=== PATIENT | male | born 1965 | race Caucasian/White ===

== ENCOUNTER 2017-05-04 16:18 | Emergency (ER) | payer OTHER ==
[~2017-05-04] VITALS: Ht 185.4 cm; Wt 103.1 kg
[2017-05-04] MEDS ORDERED: PRAVACHOL20 MG PO (16:33)
[2017-05-04] MEDS ORDERED: FLEXERIL10 MG PO (16:33)
[2017-05-04] MEDS ORDERED: RENVELA800 MG PO (16:34)
[2017-05-04] MEDS ORDERED: CORDARONE200 MG PO (16:34)
[2017-05-04] MEDS ORDERED: FLOMAX0.4 MG PO (16:34)
[2017-05-04] MEDS ORDERED: PAXIL20 MG PO (16:34)
[2017-05-04] MEDS ORDERED: ZOFRAN4 MG PO (16:35)
[2017-05-04] MEDS ORDERED: MIRALAX17 GM PO (16:35)
[2017-05-04] MEDS ORDERED: NEURONTIN300 MG PO (16:36)
[2017-05-04] MEDS ORDERED: NEURONTIN600 MG PO (16:36)
[2017-05-04] MEDS ORDERED: PROAMATINE10 MG PO (16:36)
[2017-05-04] MEDS ORDERED: ENULOSE10 GM/15 M PO (16:36)
[2017-05-04] MEDS ORDERED: ULTRAM50 MG PO (16:37)
[2017-05-04] MEDS ORDERED: DILAUDID2 MG PO (16:37)
[2017-05-04] MEDS ORDERED: OXYCONTIN60 MG PO (16:37)
[2017-05-04] MEDS ORDERED: IRON325 MG PO (16:38)
[2017-05-04] MEDS ORDERED: ACEPHEN325 MG PO (16:38)
[2017-05-04] MEDS ORDERED: VITAMIN D2000 UNIT PO (16:38)
[2017-05-04] MEDS ORDERED: DULCOLAX10 MG PR (16:38)
[2017-05-04] MEDS ORDERED: SENNA-DOCUSATE1 EAC1 PO (16:39)
[2017-05-04] MEDS ORDERED: MILK OF MAGN PO (16:39)
[2017-05-04 17:58] LABS: HEMATOCRIT 45.1 % (38.0-50.0); MCH 28.2 PG (29.0-34.0); MCHC 33.3 G/DL (30.0-36.0); MCV 84.8 FL (86-99); MEAN PLAT.VOLUME 9.6 uM^3 (9.0-12.4); PLATELET COUNT 215 K/uL (156-360); RBC DIS.WIDTH-CV 14.2 % (11.8-14.6); RBC DIS.WIDTH-SD 43.7 % (39-53); RED BLOOD COUNT 5.32 M/uL (4.00-5.50); WHITE BLOOD COUNT 6.9 K/uL (4.1-10.2)
[2017-05-04 18:08] LABS: CHLORIDE 97 mEq/L (99-109); POTASSIUM 3.9 mEq/L (3.7-5.4); SODIUM 136 mEq/L (136-147)
[2017-05-04 18:10] LABS: GLUCOSE 111 mg/dL (70-99)
[2017-05-04 18:11] LABS: ANION GAP 12 MEQ/L (2-14)
[2017-05-04 18:12] LABS: TOTAL BILIRUBIN 0.4 mg/dL (0.0-1.0)
[2017-05-04 18:13] LABS: ALKALINE PHOSPHATASE 103 IU/L (3-129)
[2017-05-04 18:14] LABS: GFR ESTIMATE (CALCULATED) 42 mL/min/
[2017-05-04 18:15] LABS: UREA NITROGEN (BUN) 25 mg/dL (9-23)
[2017-05-04 21:29] VITALS: BP 143/94
== END 2017-05-04 21:50 | disposition home or self-care (01) ==
LOC: EME 16:18
PROVIDERS: Emergency Medicine
DX: M25.551 Pain in right hip (principal); G89.29 Other chronic pain; N28.9 Disorder of kidney and ureter, unspecified
CPT/HCPCS: 80053; 85027; 99281; 99285

== ENCOUNTER 2017-06-12 12:55 | Inpatient (IN) | payer OTHER ==
[~2017-06-12] VITALS: Ht 188 cm; Wt 99.4 kg
[~2017-06-12 12:55] MED LIST: ACEPHEN325 MG PO; CORDARONE200 MG PO; DILAUDID2 MG PO; DULCOLAX10 MG PR; ENULOSE10 GM/15 M PO; FLEXERIL10 MG PO; FLOMAX0.4 MG PO; IRON325 MG PO; MILK OF MAGN PO; MIRALAX17 GM PO; NEURONTIN300 MG PO; NEURONTIN600 MG PO; OXYCONTIN30 MG PO; PAXIL20 MG PO; PRAVACHOL20 MG PO; PROAMATINE10 MG PO; RENVELA800 MG PO; SENNA-DOCUSATE1 EAC1 PO; ULTRAM50 MG PO; VITAMIN D2000 UNIT PO; ZOFRAN4 MG PO
[2017-06-12 13:44] LABS: HEMATOCRIT 51.8 % (38.0-50.0); MCH 28.1 PG (29.0-34.0); MCHC 32.6 G/DL (30.0-36.0); MCV 86.2 FL (86-99); MEAN PLAT.VOLUME 10.3 uM^3 (9.0-12.4); PLATELET COUNT 339 K/uL (156-360); RBC DIS.WIDTH-CV 14.8 % (11.8-14.6); RBC DIS.WIDTH-SD 45.7 % (39-53); RED BLOOD COUNT 6.01 M/uL (4.00-5.50); WHITE BLOOD COUNT 11.6 K/uL (4.1-10.2)
[2017-06-12 13:48] LABS: CHLORIDE 100 mEq/L (99-109); POTASSIUM 3.4 mEq/L (3.7-5.4); SODIUM 140 mEq/L (136-147)
[2017-06-12 13:49] LABS: GLUCOSE 84 mg/dL (70-99)
[2017-06-12 13:51] LABS: ANION GAP 9 MEQ/L (2-14)
[2017-06-12 13:53] LABS: GFR ESTIMATE (CALCULATED) 34 mL/min/
[2017-06-12 13:54] LABS: UREA NITROGEN (BUN) 51 mg/dL (9-23)
[2017-06-12 14:00] LABS: ADD MIUA? YES; BILIRUBIN NEGATIVE; BLOOD SMALL; COLOR YELLOW ((YELLOW)); GLUCOSE (STRIP) NEGATIVE; KETONES NEGATIVE; LEUKOCYTES SMALL; NITRITE NEGATIVE; PROTEIN (STRIP) 100; SPECIFIC GRAVITY 1.014 (1.000-1.030)
[2017-06-12 14:17] LABS: BACTERIA 3+ /HPF; EPITHELIAL CELLS 1+ /HPF; MUCUS NONE SEEN /LPF; RED BLOOD CELLS 0-5 /HPF (0-5); UCUL ADDED? YES
[2017-06-12] MEDS ORDERED: CLONIDINE HCL0.1 MG PO (15:54)
[2017-06-12 17:20] VITALS: BP 88/52
[2017-06-12 17:45] VITALS: BP 117/71
[2017-06-12 18:00] VITALS: BP 100/64
[2017-06-12 18:10] VITALS: BP 103/62
[2017-06-12 20:00] VITALS: BP 104/67
[2017-06-12 20:19] LABS: CARBON DIOXIDE (BICARBONATE) 34.5 MEQ/L (20-31)
[2017-06-12 20:30] LABS: EOSINOPHIL (%) 1.4 % (0-5); EOSINOPHIL COUNT 0.1 K/uL (0-0.3); HEMATOCRIT 45.3 % (38.0-50.0); IMMATURE GRANULOCYTE (%) 0.1 % (0.0-0.7); LYMPHOCYTE COUNT 1.6 K/uL (1.0-2.8); MCH 28.8 PG (29.0-34.0); MCHC 32.7 G/DL (30.0-36.0); MCV 88.3 FL (86-99); MEAN PLAT.VOLUME 10.2 uM^3 (9.0-12.4); MONOCYTE (%) 9.2 % (3-12); MONOCYTE COUNT 0.8 K/uL (0-0.8); NEUTROPHIL (%) 70.6 % (45-76); PLATELET COUNT 271 K/uL (156-360); RBC DIS.WIDTH-CV 14.7 % (11.8-14.6); RBC DIS.WIDTH-SD 47.3 % (39-53); RED BLOOD COUNT 5.13 M/uL (4.00-5.50); WHITE BLOOD COUNT 8.5 K/uL (4.1-10.2)
[2017-06-12 20:34] LABS: ALKALINE PHOSPHATASE 99 IU/L (3-129); ANION GAP 4 MEQ/L (2-14); CHLORIDE 105 MEQ/L (99-109); GFR ESTIMATE (CALCULATED) 40 mL/min/; GLUCOSE 68 mg/dL (70-99); POTASSIUM 3.8 MEQ/L (3.7-5.4); SAMPLE HEMOLYSIS CHECK 0; SAMPLE ICTERIC CHECK 0; SAMPLE LIPEMIA CHECK 0; SODIUM 140 MEQ/L (136-147); TOTAL BILIRUBIN 0.7 MG/DL (0.0-1.0); UREA NITROGEN (BUN) 44 mg/dL (9-23)
[2017-06-12 23:15] VITALS: BP 102/58
[2017-06-13 00:04] LABS: BASE EXCESS 1.4 mEq/L (-3 to +3); BICARBONATE 28.5 mEq/L (22-26); CARBOXY HGB 2.1 % (0-5); COMMENTS - BLOOD GASES C+A+; DEVICE NC; METHEMOGLOBIN 2.1 % (0-1.5); O2 FLOW 1 L/MIN; PCO2 54 mm Hg (35-45); PO2 88 mm Hg (80-100); SITE RB; TOTAL RESP RATE 16 resp/min; pH 7.33 (7.35-7.45)
[2017-06-13 00:20] LABS: POINT-OF-CARE METER ID UU13113700
[2017-06-13 01:51] LABS: LIPASE 96 U/L (1.0-51.0); SALICYLATE < 5.0 MG/DL (15-30)
[2017-06-13 02:06] LABS: ADD MIUA? YES; BILIRUBIN NEGATIVE; BLOOD MODERATE; COLOR YELLOW ((YELLOW)); GLUCOSE (STRIP) NEGATIVE; KETONES NEGATIVE; LEUKOCYTES LARGE; NITRITE NEGATIVE; PROTEIN (STRIP) 100; SPECIFIC GRAVITY 1.011 (1.000-1.030); UROBILINOGEN 0.2 MG/DL (0.2-1.0)
[2017-06-13 02:42] LABS: AMORPHOUS PHOSPHATE CRYSTALS 3+; CRYSTALS PRESENT
[2017-06-13 02:43] LABS: POINT-OF-CARE METER ID UU14162513
[2017-06-13 02:50] LABS: AMPHETAMINES QUANT VALUE 0 NG/ML; BARBITUATES QUANT VALUE 0 NG/ML; BENZODIAZEPINES QUANT VALUE 0 NG/ML; BENZODIAZEPINES, URINE SCREEN Negative (200 ng/mL); MARIJUANA QUANT VALUE 0 NG/ML; PHENCYCLIDINE QUANT VALUE 0 NG/ML
[2017-06-13 02:51] LABS: CASTS PRESENT /LPF; FINE GRANULAR CASTS 0-5 /LPF
[2017-06-13 02:55] LABS: BACTERIA 2+ /HPF; EPITHELIAL CELLS 1+ /HPF; UCUL ADDED? YES
[2017-06-13 03:06] LABS: MUCUS NONE SEEN /LPF
[2017-06-13 03:10] LABS: WHITE BLOOD CELLS 30-40 /HPF (0-5)
[2017-06-13 03:50] VITALS: BP 91/56
[2017-06-13 06:24] LABS: HEMATOCRIT 40.2 % (38.0-50.0); MCH 27.8 PG (29.0-34.0); MCHC 31.3 G/DL (30.0-36.0); MCV 88.5 FL (86-99); MEAN PLAT.VOLUME 10.5 uM^3 (9.0-12.4); PLATELET COUNT 243 K/uL (156-360); RBC DIS.WIDTH-CV 14.8 % (11.8-14.6); RBC DIS.WIDTH-SD 47.5 % (39-53); RED BLOOD COUNT 4.54 M/uL (4.00-5.50); WHITE BLOOD COUNT 6.8 K/uL (4.1-10.2)
[2017-06-13 06:39] LABS: POINT-OF-CARE METER ID UU13113725
[2017-06-13 06:50] LABS: ANION GAP 10 MEQ/L (2-14); CHLORIDE 105 MEQ/L (99-109); GLUCOSE 48 mg/dL (70-99); POTASSIUM 3.9 MEQ/L (3.7-5.4); SAMPLE HEMOLYSIS CHECK 0; SAMPLE ICTERIC CHECK 0; SAMPLE LIPEMIA CHECK 0; SODIUM 139 MEQ/L (136-147); UREA NITROGEN (BUN) 35 mg/dL (9-23)
[2017-06-13 06:51] LABS: ALKALINE PHOSPHATASE 85 IU/L (3-129); ANION GAP 6 MEQ/L (2-14); CHLORIDE 106 MEQ/L (99-109); GFR ESTIMATE (CALCULATED) 52 mL/min/; GLUCOSE 51 mg/dL (70-99); SAMPLE HEMOLYSIS CHECK 0; SAMPLE ICTERIC CHECK 0; SAMPLE LIPEMIA CHECK 0; SODIUM 139 MEQ/L (136-147); TOTAL BILIRUBIN 0.6 MG/DL (0.0-1.0); UREA NITROGEN (BUN) 35 mg/dL (9-23)
[2017-06-13 07:00] LABS: GFR ESTIMATE (CALCULATED) 57 mL/min/
[2017-06-13 07:29] VITALS: BP 97/53
[2017-06-13 07:33] LABS: Estimated Average Glucose 103 mg/dL (70-123); HEMOGLOBIN A1c (GLYCOHEMOGLOB) 5.2 % HGB (Below 5.7)
[2017-06-13 08:23] LABS: POINT-OF-CARE METER ID UU13113725
[2017-06-13 10:29] LABS: HBSG INDEX 0.19; HPCA INDEX 0.21
[2017-06-13 10:30] LABS: ANTI-HEPATITIS A VIRUS (IGM) Nonreactive; HAV INDEX 0.14
[2017-06-13 10:31] LABS: ANTI-HEPATITIS B CORE (IGM) Nonreactive; HBC IgM INDEX 0.13
[2017-06-13 11:16] LABS: POINT-OF-CARE METER ID UU13113725
[2017-06-13 11:29] VITALS: BP 91/53
[2017-06-13 16:35] VITALS: BP 121/75
[2017-06-13 16:38] LABS: POINT-OF-CARE METER ID UU13113725
[2017-06-13 19:21] LABS: HEMATOCRIT 42.6 % (38.0-50.0); MCH 27.8 PG (29.0-34.0); MCHC 31.2 G/DL (30.0-36.0); MCV 88.9 FL (86-99); PLATELET COUNT 238 K/uL (156-360); RBC DIS.WIDTH-CV 14.9 % (11.8-14.6); RBC DIS.WIDTH-SD 47.9 % (39-53); RED BLOOD COUNT 4.79 M/uL (4.00-5.50); WHITE BLOOD COUNT 8.5 K/uL (4.1-10.2)
[2017-06-13 21:07] VITALS: BP 127/61
[2017-06-13 22:52] LABS: POINT-OF-CARE METER ID UU13113725
[2017-06-13 23:38] LABS: POINT-OF-CARE METER ID UU13113725
[2017-06-14] VITALS (7 sets, daily range): BP systolic 92–122; BP diastolic 51–65
[2017-06-14 06:02] LABS: HEMATOCRIT 40.8 % (38.0-50.0); MCH 28.7 PG (29.0-34.0); MCHC 32.4 G/DL (30.0-36.0); MCV 88.7 FL (86-99); MEAN PLAT.VOLUME 10.4 uM^3 (9.0-12.4); PLATELET COUNT 222 K/uL (156-360); RBC DIS.WIDTH-CV 15.1 % (11.8-14.6); WHITE BLOOD COUNT 7.8 K/uL (4.1-10.2)
[2017-06-14 06:38] LABS: ALKALINE PHOSPHATASE 100 IU/L (3-129); ANION GAP 4 MEQ/L (2-14); CHLORIDE 110 MEQ/L (99-109); GFR ESTIMATE (CALCULATED) 52 mL/min/; GLUCOSE 75 mg/dL (70-99); POTASSIUM 3.8 MEQ/L (3.7-5.4); SAMPLE HEMOLYSIS CHECK 0; SAMPLE ICTERIC CHECK 0; SAMPLE LIPEMIA CHECK 0; SODIUM 143 MEQ/L (136-147); TOTAL BILIRUBIN 0.6 MG/DL (0.0-1.0); UREA NITROGEN (BUN) 21 mg/dL (9-23)
[2017-06-14 07:22] LABS: ERTH.SED.RATE 12 MM/HR (0-20)
[2017-06-14 16:30] LABS: POINT-OF-CARE METER ID UU13113725
[2017-06-14 22:50] LABS: POINT-OF-CARE METER ID UU13113725
[2017-06-15 02:47] VITALS: BP 91/54
[2017-06-15 06:26] LABS: HEMATOCRIT 42.6 % (38.0-50.0); MCH 28.2 PG (29.0-34.0); MCHC 31.7 G/DL (30.0-36.0); MCV 89.1 FL (86-99); MEAN PLAT.VOLUME 10.6 uM^3 (9.0-12.4); PLATELET COUNT 221 K/uL (156-360); RBC DIS.WIDTH-CV 15.1 % (11.8-14.6); RED BLOOD COUNT 4.78 M/uL (4.00-5.50); WHITE BLOOD COUNT 7.3 K/uL (4.1-10.2)
[2017-06-15 06:56] LABS: ALKALINE PHOSPHATASE 114 IU/L (3-129); ANION GAP 4 MEQ/L (2-14); CHLORIDE 106 MEQ/L (99-109); GFR ESTIMATE (CALCULATED) 57 mL/min/; GLUCOSE 68 mg/dL (70-99); SAMPLE HEMOLYSIS CHECK 0; SAMPLE ICTERIC CHECK 0; SAMPLE LIPEMIA CHECK 0; SODIUM 143 MEQ/L (136-147); TOTAL BILIRUBIN 0.6 MG/DL (0.0-1.0); UREA NITROGEN (BUN) 16 mg/dL (9-23)
[2017-06-15 07:18] VITALS: BP 113/59
[2017-06-15 11:34] LABS: POINT-OF-CARE METER ID UU13113725
[2017-06-15 12:14] VITALS: BP 101/58
[2017-06-15 16:08] LABS: POINT-OF-CARE METER ID UU13113725
[2017-06-15 16:40] VITALS: BP 164/89
[2017-06-15 18:52] VITALS: BP 103/58
[2017-06-15 22:49] VITALS: BP 114/59
[2017-06-16 02:56] VITALS: BP 92/50
[2017-06-16 06:01] LABS: POINT-OF-CARE METER ID UU13113725
[2017-06-16 07:18] LABS: HEMATOCRIT 41.6 % (38.0-50.0); MCH 28.4 PG (29.0-34.0); MCHC 32.7 G/DL (30.0-36.0); MCV 86.8 FL (86-99); MEAN PLAT.VOLUME 10.3 uM^3 (9.0-12.4); PLATELET COUNT 220 K/uL (156-360); RBC DIS.WIDTH-SD 47.7 % (39-53); RED BLOOD COUNT 4.79 M/uL (4.00-5.50); WHITE BLOOD COUNT 7.1 K/uL (4.1-10.2)
[2017-06-16 07:21] VITALS: BP 94/55
[2017-06-16 07:49] LABS: ALKALINE PHOSPHATASE 106 IU/L (3-129); ANION GAP 3 MEQ/L (2-14); CHLORIDE 104 MEQ/L (99-109); GFR ESTIMATE (CALCULATED) 57 mL/min/; MAGNESIUM 1.8 mg/dl (1.3-2.7); POTASSIUM 3.7 MEQ/L (3.7-5.4); SAMPLE HEMOLYSIS CHECK 0; SAMPLE ICTERIC CHECK 0; SAMPLE LIPEMIA CHECK 0; SODIUM 140 MEQ/L (136-147); TOTAL BILIRUBIN 0.7 MG/DL (0.0-1.0); UREA NITROGEN (BUN) 14 mg/dL (9-23)
[2017-06-16 07:51] LABS: GLUCOSE 90 mg/dL (70-99)
[2017-06-16 12:58] VITALS: BP 99/51
[2017-06-16 15:41] VITALS: BP 85/52
[2017-06-16 23:12] LABS: POINT-OF-CARE METER ID UU13113725
[2017-06-17 00:20] VITALS: BP 90/52
[2017-06-17 05:38] LABS: POINT-OF-CARE METER ID UU13113725
[2017-06-17 07:36] VITALS: BP 99/54
[2017-06-17 11:51] LABS: POINT-OF-CARE METER ID UU13113725
[2017-06-17 13:28] VITALS: BP 98/56
[2017-06-17 16:03] VITALS: BP 103/52
[2017-06-17 16:36] LABS: POINT-OF-CARE METER ID UU13113725
[2017-06-17 21:40] LABS: POINT-OF-CARE METER ID UU13113725
[2017-06-18 00:17] VITALS: BP 107/53
[2017-06-18 06:10] LABS: EOSINOPHIL COUNT 0.3 K/uL (0-0.3); HEMATOCRIT 40.8 % (38.0-50.0); IMMATURE GRANULOCYTE (%) 0.3 % (0.0-0.7); INSTRUMENT ABS NEUTROPHIL CT 3.5 K/uL; LYMPHOCYTE COUNT 2.1 K/uL (1.0-2.8); MCH 28.1 PG (29.0-34.0); MCHC 32.1 G/DL (30.0-36.0); MCV 87.6 FL (86-99); MEAN PLAT.VOLUME 10.6 uM^3 (9.0-12.4); MONOCYTE (%) 13.6 % (3-12); MONOCYTE COUNT 0.9 K/uL (0-0.8); NEUTROPHIL (%) 50.5 % (45-76); NEUTROPHIL COUNT 3.5 K/uL (1.8-6.4); PLATELET COUNT 203 K/uL (156-360); RBC DIS.WIDTH-CV 15.6 % (11.8-14.6); RBC DIS.WIDTH-SD 49.8 % (39-53); RED BLOOD COUNT 4.66 M/uL (4.00-5.50); WHITE BLOOD COUNT 6.8 K/uL (4.1-10.2)
[2017-06-18 06:42] LABS: ALKALINE PHOSPHATASE 93 IU/L (3-129); ANION GAP 3 MEQ/L (2-14); CHLORIDE 104 MEQ/L (99-109); GFR ESTIMATE (CALCULATED) 49 mL/min/; GLUCOSE 66 mg/dL (70-99); POTASSIUM 4.1 MEQ/L (3.7-5.4); SAMPLE HEMOLYSIS CHECK 0; SAMPLE ICTERIC CHECK 0; SAMPLE LIPEMIA CHECK 0; SODIUM 141 MEQ/L (136-147); UREA NITROGEN (BUN) 17 mg/dL (9-23)
[2017-06-18 06:43] LABS: POINT-OF-CARE METER ID UU13113725
[2017-06-18 06:44] LABS: TOTAL BILIRUBIN 0.4 MG/DL (0.0-1.0)
[2017-06-18 08:03] VITALS: BP 100/57
[2017-06-18 15:51] LABS: POINT-OF-CARE METER ID UU13113725
[2017-06-18 16:14] VITALS: BP 110/60
[2017-06-19 00:16] VITALS: BP 100/55
[2017-06-19 06:10] LABS: ANION GAP 5 MEQ/L (2-14); CHLORIDE 102 MEQ/L (99-109); GFR ESTIMATE (CALCULATED) 45 mL/min/; GLUCOSE 69 mg/dL (70-99); POTASSIUM 4.7 MEQ/L (3.7-5.4); SAMPLE HEMOLYSIS CHECK 0; SAMPLE ICTERIC CHECK 0; SAMPLE LIPEMIA CHECK 0; SODIUM 141 MEQ/L (136-147); UREA NITROGEN (BUN) 18 mg/dL (9-23)
[2017-06-19 06:20] LABS: POINT-OF-CARE METER ID UU13113725
[2017-06-19 08:38] VITALS: BP 106/65
[2017-06-19 12:58] LABS: MCHC 32.6 G/DL (30.0-36.0); MCV 89.2 FL (86-99); MEAN PLAT.VOLUME 10.9 uM^3 (9.0-12.4); PLATELET COUNT 206 K/uL (156-360); RBC DIS.WIDTH-CV 15.5 % (11.8-14.6); RBC DIS.WIDTH-SD 50.4 % (39-53); RED BLOOD COUNT 4.82 M/uL (4.00-5.50)
[2017-06-19 13:19] LABS: DIRECT BILIRUBIN 0.1 mg/dL (0.0-0.3); TOTAL BILIRUBIN 0.4 MG/DL (0.0-1.0)
[2017-06-19 13:24] LABS: ALKALINE PHOSPHATASE 101 IU/L (3-129)
[2017-06-19] MEDS ORDERED: OXYCONTIN30 MG PO (15:35)
[2017-06-19] MEDS ORDERED: HYDROMORPHONE HC4 MG PO (15:35)
[2017-06-19 16:30] VITALS: BP 93/50
[2017-06-20 00:11] VITALS: BP 108/51
[2017-06-20 05:44] LABS: POINT-OF-CARE METER ID UU13113725
[2017-06-20 08:16] VITALS: BP 102/64
[2017-06-20 09:08] LABS: ANION GAP 4 MEQ/L (2-14); CHLORIDE 99 MEQ/L (99-109); GFR ESTIMATE (CALCULATED) 36 mL/min/; POTASSIUM 4.8 MEQ/L (3.7-5.4); SAMPLE HEMOLYSIS CHECK 0; SAMPLE ICTERIC CHECK 0; SAMPLE LIPEMIA CHECK 0; SODIUM 140 MEQ/L (136-147); UREA NITROGEN (BUN) 22 mg/dL (9-23)
[2017-06-20 09:09] LABS: GLUCOSE 126 mg/dL (70-99)
[2017-06-20 11:38] LABS: POINT-OF-CARE METER ID UU13113725
[2017-06-20 15:42] LABS: POINT-OF-CARE METER ID UU13113725
[2017-06-20 16:29] VITALS: BP 101/49
[2017-06-20 20:43] LABS: POINT-OF-CARE USER ID STWHLR41
[2017-06-20 21:15] VITALS: BP 93/54
[2017-06-21 00:28] VITALS: BP 90/48
[2017-06-21 05:48] LABS: POINT-OF-CARE METER ID UU13113725; POINT-OF-CARE USER ID STWHLR41
[2017-06-21 06:33] LABS: HEMATOCRIT 42.8 % (38.0-50.0); MCH 27.7 PG (29.0-34.0); MCHC 30.8 G/DL (30.0-36.0); MCV 89.7 FL (86-99); MEAN PLAT.VOLUME 11.2 uM^3 (9.0-12.4); PLATELET COUNT 211 K/uL (156-360); RBC DIS.WIDTH-CV 15.2 % (11.8-14.6); RBC DIS.WIDTH-SD 49.9 % (39-53); RED BLOOD COUNT 4.77 M/uL (4.00-5.50); WHITE BLOOD COUNT 6.6 K/uL (4.1-10.2)
[2017-06-21 07:09] LABS: ALKALINE PHOSPHATASE 99 IU/L (3-129); ANION GAP 3 MEQ/L (2-14); CHLORIDE 99 MEQ/L (99-109); DIRECT BILIRUBIN 0.1 mg/dL (0.0-0.3); GFR ESTIMATE (CALCULATED) 34 mL/min/; POTASSIUM 4.9 MEQ/L (3.7-5.4); SAMPLE HEMOLYSIS CHECK 0; SAMPLE ICTERIC CHECK 0; SAMPLE LIPEMIA CHECK 0; SODIUM 139 MEQ/L (136-147); TOTAL BILIRUBIN 0.4 MG/DL (0.0-1.0); UREA NITROGEN (BUN) 22 mg/dL (9-23)
[2017-06-21 07:10] LABS: GLUCOSE 87 mg/dL (70-99)
[2017-06-21 07:49] VITALS: BP 111/56
[2017-06-21 10:45] LABS: POINT-OF-CARE METER ID UU13113725
[2017-06-21 16:15] LABS: POINT-OF-CARE METER ID UU13113725
[2017-06-21 16:31] VITALS: BP 112/60
[2017-06-21 22:41] VITALS: BP 121/67
[2017-06-22 06:45] LABS: HEMATOCRIT 40.4 % (38.0-50.0); MCH 27.6 PG (29.0-34.0); MCHC 30.7 G/DL (30.0-36.0); MCV 89.8 FL (86-99); MEAN PLAT.VOLUME 11.4 uM^3 (9.0-12.4); PLATELET COUNT 210 K/uL (156-360); RBC DIS.WIDTH-SD 49.3 % (39-53); WHITE BLOOD COUNT 7.8 K/uL (4.1-10.2)
[2017-06-22 07:06] LABS: ALKALINE PHOSPHATASE 85 IU/L (3-129); ANION GAP 5 MEQ/L (2-14); CHLORIDE 102 MEQ/L (99-109); GFR ESTIMATE (CALCULATED) 36 mL/min/; GLUCOSE 79 mg/dL (70-99); SAMPLE HEMOLYSIS CHECK 0; SAMPLE ICTERIC CHECK 0; SAMPLE LIPEMIA CHECK 0; SODIUM 143 MEQ/L (136-147); TOTAL BILIRUBIN 0.4 MG/DL (0.0-1.0); UREA NITROGEN (BUN) 22 mg/dL (9-23)
[2017-06-22 07:21] VITALS: BP 90/55
[2017-06-22 15:29] VITALS: BP 111/54
[2017-06-22 22:50] VITALS: BP 106/52
[2017-06-23 07:40] VITALS: BP 103/54
[2017-06-23 16:16] VITALS: BP 94/47
[2017-06-23 22:54] VITALS: BP 87/51
[2017-06-24 06:40] LABS: ANION GAP 6 MEQ/L (2-14); CHLORIDE 104 MEQ/L (99-109); GFR ESTIMATE (CALCULATED) 36 mL/min/; POTASSIUM 4.8 MEQ/L (3.7-5.4); SAMPLE HEMOLYSIS CHECK 0; SAMPLE ICTERIC CHECK 0; SAMPLE LIPEMIA CHECK 0; SODIUM 143 MEQ/L (136-147); UREA NITROGEN (BUN) 21 mg/dL (9-23)
[2017-06-24 06:44] LABS: GLUCOSE 104 mg/dL (70-99)
[2017-06-24 08:00] VITALS: BP 111/57
[2017-06-24 15:55] VITALS: BP 102/55
[2017-06-24 22:47] VITALS: BP 109/55
[2017-06-25 08:09] VITALS: BP 102/57
[2017-06-25 14:20] VITALS: BP 111/57
[2017-06-26 00:18] VITALS: BP 120/64
[2017-06-26 08:22] VITALS: BP 115/65
[2017-06-26 23:15] VITALS: BP 102/58
[2017-06-27 06:30] LABS: BASOPHIL COUNT 0.1 K/uL (0-0.1); EOSINOPHIL (%) 2.6 % (0-5); EOSINOPHIL COUNT 0.2 K/uL (0-0.3); HEMATOCRIT 39.7 % (38.0-50.0); IMMATURE GRANULOCYTE (%) 0.2 % (0.0-0.7); INSTRUMENT ABS NEUTROPHIL CT 5.4 K/uL; LYMPHOCYTE COUNT 1.5 K/uL (1.0-2.8); MCH 28.9 PG (29.0-34.0); MCV 90.4 FL (86-99); MEAN PLAT.VOLUME 10.8 uM^3 (9.0-12.4); MONOCYTE (%) 11.8 % (3-12); NEUTROPHIL (%) 66.1 % (45-76); NEUTROPHIL COUNT 5.4 K/uL (1.8-6.4); RBC DIS.WIDTH-CV 15.6 % (11.8-14.6); RBC DIS.WIDTH-SD 51.4 % (39-53); RED BLOOD COUNT 4.39 M/uL (4.00-5.50); WHITE BLOOD COUNT 8.1 K/uL (4.1-10.2)
[2017-06-27 06:31] LABS: PLATELET COUNT 289 K/uL (156-360)
[2017-06-27 07:46] VITALS: BP 117/74
[2017-06-27 07:56] LABS: ALKALINE PHOSPHATASE 89 IU/L (3-129); ANION GAP 5 MEQ/L (2-14); CHLORIDE 98 MEQ/L (99-109); GFR ESTIMATE (CALCULATED) 38 mL/min/; GLUCOSE 101 mg/dL (70-99); POTASSIUM 4.9 MEQ/L (3.7-5.4); SAMPLE HEMOLYSIS CHECK 0; SAMPLE ICTERIC CHECK 0; SAMPLE LIPEMIA CHECK 0; SODIUM 140 MEQ/L (136-147); UREA NITROGEN (BUN) 22 mg/dL (9-23)
[2017-06-27 07:58] LABS: TOTAL BILIRUBIN 0.3 MG/DL (0.0-1.0)
[2017-06-27 17:28] VITALS: BP 114/55
[2017-06-28 00:29] VITALS: BP 120/64
[2017-06-28 07:17] VITALS: BP 123/61
[2017-06-28 08:09] LABS: POINT-OF-CARE METER ID UU13113725
[2017-06-28 16:07] VITALS: BP 115/53
[2017-06-28 23:17] LABS: POINT-OF-CARE METER ID UU13113725
[2017-06-28 23:25] VITALS: BP 95/54
[2017-06-29 07:08] VITALS: BP 107/51
[2017-06-29 15:58] VITALS: BP 107/58
[2017-06-29 18:48] LABS: ADD MIUA? YES; BILIRUBIN NEGATIVE; BLOOD SMALL; COLOR YELLOW ((YELLOW)); GLUCOSE (STRIP) NEGATIVE; KETONES NEGATIVE; LEUKOCYTES MODERATE; NITRITE NEGATIVE; PROTEIN (STRIP) 30; SPECIFIC GRAVITY 1.013 (1.000-1.030); UROBILINOGEN 0.2 MG/DL (0.2-1.0)
[2017-06-29 20:08] LABS: BACTERIA NONE SEEN /HPF; BUDDING YEAST 1+; EPITHELIAL CELLS RARE /HPF; MUCUS TRACE /LPF; RED BLOOD CELLS 0-5 /HPF (0-5); UNCLASSIFIED CASTS 0-5 /LPF; UNCLASSIFIED CRYSTALS 1+ /HPF; WHITE BLOOD CELLS 15-20 /HPF (0-5); WHITE BLOOD CELLS CLUMP OCC /HPF (0-5)
[2017-06-30 01:08] VITALS: BP 105/58
[2017-06-30 07:11] VITALS: BP 121/62
[2017-06-30 15:55] VITALS: BP 108/60
[2017-06-30 23:37] VITALS: BP 116/58
[2017-07-01 06:34] LABS: HEMATOCRIT 36.5 % (38.0-50.0); MCH 28.9 PG (29.0-34.0); MCHC 30.7 G/DL (30.0-36.0); MCV 94.1 FL (86-99); MEAN PLAT.VOLUME 10.3 uM^3 (9.0-12.4); PLATELET COUNT 239 K/uL (156-360); RBC DIS.WIDTH-CV 15.1 % (11.8-14.6); RBC DIS.WIDTH-SD 51.9 % (39-53); RED BLOOD COUNT 3.88 M/uL (4.00-5.50); WHITE BLOOD COUNT 5.4 K/uL (4.1-10.2)
[2017-07-01 06:50] VITALS: BP 110/58
[2017-07-01 07:01] LABS: ANION GAP ND MEQ/L (2-14); CHLORIDE 96 MEQ/L (99-109); GFR ESTIMATE (CALCULATED) 40 mL/min/; GLUCOSE 77 mg/dL (70-99); POTASSIUM 4.7 MEQ/L (3.7-5.4); SAMPLE HEMOLYSIS CHECK 0; SAMPLE ICTERIC CHECK 0; SAMPLE LIPEMIA CHECK 0; SODIUM 142 MEQ/L (136-147); UREA NITROGEN (BUN) 20 mg/dL (9-23)
[2017-07-01 07:08] LABS: CARBON DIOXIDE (BICARBONATE) > 40.0 MEQ/L (20-31)
[2017-07-01] MEDS ORDERED: CIPROFLOXACIN250 MG PO (12:07)
[2017-07-01 15:50] VITALS: BP 106/58
[2017-07-02 00:03] VITALS: BP 124/65
[2017-07-02 07:20] VITALS: BP 105/61
[2017-07-02 11:22] VITALS: BP 116/66
[2017-07-02 15:30] VITALS: BP 104/58
[2017-07-02 23:57] VITALS: BP 112/71
[2017-07-03 07:57] VITALS: BP 113/59
[2017-07-03 16:33] VITALS: BP 111/63
[2017-07-04 00:37] VITALS: BP 107/57
[2017-07-04 07:52] VITALS: BP 109/61
[2017-07-04 15:38] VITALS: BP 112/68
[2017-07-04 23:45] VITALS: BP 98/56
[2017-07-05 08:47] VITALS: BP 112/63
[2017-07-05 11:55] VITALS: BP 110/60
== END 2017-07-05 14:21 | DRG 689 ==
LOC: EME 12:55 → EDOF 15:42 → ENRESERV 15:50 → 5WEST 17:03 → 5EAST 06-13 01:05 → 5WEST 06-13 01:05 → ENRESERV 06-13 01:20 → 5EAST 06-13 06:23
PROVIDERS: Hospitalist; Internal Medicine; Physician Assistant; Physician Assistant Medical; Student in an Organized Health Care Education/Training Program
DX: N39.0 Urinary tract infection, site not specified (principal); J96.01 Acute respiratory failure with hypoxia; J96.02 Acute respiratory failure with hypercapnia; N17.9 Acute kidney failure, unspecified; G93.41 Metabolic encephalopathy; M16.11 Unilateral primary osteoarthritis, right hip; E86.0 Dehydration; N18.3 Chronic kidney disease, stage 3 (moderate); E87.6 Hypokalemia; Z74.01 Bed confinement status; E87.2 Acidosis; R73.9 Hyperglycemia, unspecified; R33.9 Retention of urine, unspecified; R64 Cachexia; Z68.28 Body mass index [BMI] 28.0-28.9, adult; M17.11 Unilateral primary osteoarthritis, right knee; B96.5 Pseudomonas (aeruginosa) (mallei) (pseudomallei) as the cause of diseases classified elsewhere; N36.8 Other specified disorders of urethra; Z93.6 Other artificial openings of urinary tract status; E78.5 Hyperlipidemia, unspecified; Z89.422 Acquired absence of other left toe(s); T40.2X5A Adverse effect of other opioids, initial encounter; J98.11 Atelectasis; K56.41 Fecal impaction; G89.29 Other chronic pain; N20.0 Calculus of kidney; I95.89 Other hypotension; G62.9 Polyneuropathy, unspecified; M81.0 Age-related osteoporosis without current pathological fracture
CPT/HCPCS: 36600; 70450; 71010; 71020; 73502; 73630; 73721; 74176; 76705; 80048; 80053; 80074; 80076; 80306 90; 81003; 82140; 82272; 82803; 82948; 83036; 83605; 83630; 83690; 83735; 85025; 85027; 85651; 86140; 87040; 87077; 87086; 87177; 87186; 87493; 87506; 93005; 94799; 97530 GP; 99281; 99285; G0103; G0378; G0480; J0692; J0696; J0744; J1170; J1644; J1815; J2060; J2270; J2405; J2765; J3010; J3370; J7030; J7040; J7042; J7050; J7120